=== PATIENT | female | born 1975 | race Caucasian/White ===

== ENCOUNTER 2022-06-02 11:27 | Emergency (ER) | payer OTHER, SELFPAY ==
[2022-06-02 11:38] VITALS: BP 188/93; PULSE 90; RESP 16; TEMP 36.6; O2SAT 99
--- NOTE | 2022-06-02 11:43 | ED.DENTAL ---
HPI - Dental/Oral General Chief complaint: Dental/Oral Stated complaint: Tooth pain /sinus infection Time Seen by Provider: 06/02/22 11:44 Source: patient, RN notes reviewed and old records reviewed Mode of arrival: ambulatory Limitations: no limitations History of Present Illness HPI Narrative: 47 year old female presents to [facility] care with complaints of 1-2 weeks history of dental pain to left lower molar #20 tooth with a hole noted to the front of the tooth. Patient reports that she has had dental problems in past with missing teeth noted. Patient has been taking some Tylenol and Ibuprofen for her discomfort. Patient had recent COVID and was treated for 5 days with Paxlovid which was started 05/26/2022. Patient also reports that she woke this morning with her left eye swollen shut with yellowish discharge noted. MD Complaint: tooth pain Location: Tooth # (20) Onset (ago): week(s) (2) Severity: moderate Severity scale (1-10): 5 Treatment prior to arrival: oral analgesic Related Data Home Medications Medication Instructions Recorded Confirmed albuterol sulfate 90 mcg/actuation 2 puff inhalation Q4-6H PRN 06/02/22 06/02/22 aerosol inhaler Shortness Of Breath Or Wheezing gabapentin 300 mg capsule 300 mg PO TID 06/02/22 06/02/22 hydrocodone 7.5 mg-acetaminophen 1 tablet PO Q6H PRN Pain 06/02/22 06/02/22 325 mg tablet ibuprofen 800 mg tablet 800 mg PO DAILY 06/02/22 06/02/22 insulin glargine-yfgn 100 unit/mL 100 unit subcut 3XD 06/02/22 06/02/22 (3 mL) subcutaneous pen (Semglee (insulin glargine-yfgn) Pen) metoprolol tartrate 50 mg tablet 50 mg PO BID 06/02/22 06/02/22 naloxone 4 mg/actuation nasal spray 1 spray intranasal DAILY PRN 06/02/22 06/02/22 (Drug) Ingestion ondansetron HCl 4 mg tablet 4 mg PO Q8H PRN Nausea 06/02/22 06/02/22 pantoprazole 40 mg tablet,delayed 40 mg PO DAILY 06/02/22 06/02/22 release Allergies Allergy/AdvReac Type Severity Reaction Status Date / Time Penicillins Allergy Unknown RASH, Verified 06/02/22 11:39 SWELLING Review of Systems Review of Systems: CONSTITUTIONAL: Denies fever, chills, or sweats. EYES: Denies visual changes,positive redness, or discharge from left eye. ENT: Denies rhinorrhea, congestion, sore throat, or otalgia.positive for dental pain left lower jaw CARDIOVASCULAR: Denies chest pain, palpitations, or edema. RESPIRATORY: Denies cough or dyspnea. GASTROINTESTINAL: Denies abdominal pain, nausea, vomiting, or diarrhea. GENITOURINARY: Denies dysuria or hematuria. SKIN: Denies rash or itching. MUSCULOSKELETAL: Chronic back pain, joint pain, or myalgia. NEUROLOGIC: Denies headache, numbness, or weakness. PSYCHIATRIC: Positive for anxiety or depression. All systems reviewed & are unremarkable except as noted in HPI and below PMFSH Past Medical History Medical History (Updated 06/06/22 @ 10:04 by Jennifer Parker NP) Anxiety and depression Asthma COVID-18 May 2022 Diabetes Elevated cholesterol Fibromyalgia GERD (gastroesophageal reflux disease) Hx of migraines Hypertension Rheumatoid arthritis Surgical History Surgical History (Updated 06/06/22 @ 10:08 by Jennifer Parker NP) H/O: knee surgery bilateral History of carpal tunnel release History of cholecystectomy History of tubal ligation Social History Social History (Updated 06/06/22 @ 10:01 by Jennifer Parker NP) Smoking status: Unknown if ever smoked Alcohol intake: unknown Substance use type: opiates Last use: pain control Living arrangements: with family Gender identity (if verbalized by the patient): Female Comments At time of signature, agree with nursing past medical, surgical, social and family history. There is no relevant family history pertinent to the presenting complaint Exam Narrative: GENERAL: Well-appearing, well-nourished, and in no acute distress.flat affect HEAD: Normocephalic, atraumatic. EYES: PERRLA and EOMI.left conjunctiva red with y
[2022-06-02 12:00] VITALS: BP 164/92
== END 2022-06-02 12:15 | disposition home or self-care (01) ==
PROVIDERS: Emergency Provider Registered Nurse; PCP Family Medicine
DX: K08.89 Other specified disorders of teeth and supporting structures (principal); K02.9 Dental caries, unspecified; H10.9 Unspecified conjunctivitis
CPT/HCPCS: 99203; G0463

== ENCOUNTER 2024-06-14 14:11 | Emergency (ER) | payer OTHER, SELFPAY ==
[2024-06-14 14:23] VITALS: BP 145/82; PULSE 80; RESP 16; TEMP 36.7; O2SAT 97
[2024-06-14 14:27] VITALS: BP 145/82; PULSE 80; RESP 16; TEMP 36.7; O2SAT 97
--- NOTE | 2024-06-14 14:39 | ED.URI ---
HPI - URI/Sore Throat General Chief Complaint: Upper Respiratory Infection Stated Complaint: sore throat,cough,fever History of Present Illness HPI Narrative: Patient presents with sore throat, nasal congestion bilateral ear pain and cough. No shortness of breath no chest pain no trouble swallowing no drooling. Patient states her symptoms started 3 days ago good p.o. intake and good output. Related Data Home Medications Medication Instructions Recorded Confirmed albuterol sulfate 90 mcg/actuation 2 puff inhalation Q4-6H PRN 06/02/22 06/02/22 aerosol inhaler Shortness Of Breath Or Wheezing gabapentin 300 mg capsule 300 mg PO TID 06/02/22 06/02/22 hydrocodone 7.5 mg-acetaminophen 1 tablet PO Q6H PRN Pain 06/02/22 06/02/22 325 mg tablet ibuprofen 800 mg tablet 800 mg PO DAILY 06/02/22 06/02/22 insulin glargine-yfgn 100 unit/mL 100 unit subcut 3XD 06/02/22 06/02/22 (3 mL) subcutaneous pen (Semglee (insulin glargine-yfgn) Pen) metoprolol tartrate 50 mg tablet 50 mg PO BID 06/02/22 06/02/22 naloxone 4 mg/actuation nasal spray 1 spray intranasal DAILY PRN 06/02/22 06/02/22 (Drug) Ingestion ondansetron HCl 4 mg tablet 4 mg PO Q8H PRN Nausea 06/02/22 06/02/22 pantoprazole 40 mg tablet,delayed 40 mg PO DAILY 06/02/22 06/02/22 release clonazepam 0.5 mg tablet mg 06/14/24 empagliflozin 10 mg tablet mg 06/14/24 (Jardiance) insulin degludec 100 unit/mL (3 unit subcut 06/14/24 mL) subcutaneous pen (Tresiba FlexTouch U-100 insulin) metformin 500 mg tablet mg 06/14/24 olmesartan 40 mg tablet mg 06/14/24 Allergies Allergy/AdvReac Type Severity Reaction Status Date / Time Penicillins Allergy Unknown RASH, Verified 06/14/24 14:18 SWELLING Review of Systems Review of Systems: CONSTITUTIONAL: Denies chills, or sweats. Reports fever and generalized body aches EYES: Denies visual changes, redness, or discharge. ENT: Denies otalgia. Reports nasal congestion runny nose and sore throat CARDIOVASCULAR: Denies chest pain, palpitations, or edema. RESPIRATORY: Denies dyspnea. Reports occasional cough GASTROINTESTINAL: Denies abdominal pain, nausea, vomiting, or diarrhea. GENITOURINARY: Denies dysuria or hematuria. SKIN: Denies rash or itching. MUSCULOSKELETAL: Denies back pain, joint pain, or myalgia. Reports generalized body aches NEUROLOGIC: Denies headache, numbness, or weakness. PSYCHIATRIC: Denies anxiety or depression. [facility] Past Medical History Medical History (Updated 06/14/24 @ 14:43 by JASPAL Mendez) Anxiety and depression Asthma COVID-18 May 2022 Diabetes Elevated cholesterol Fibromyalgia GERD (gastroesophageal reflux disease) Hx of migraines Hypertension Rheumatoid arthritis Surgical History Surgical History (Updated 06/06/22 @ 10:08 by Jennifer Parker NP) H/O: knee surgery bilateral History of carpal tunnel release History of cholecystectomy History of tubal ligation Social History Social History (Updated 06/06/22 @ 10:01 by Jennifer Parker NP) Smoking status: Unknown if ever smoked Alcohol intake: unknown Substance use type: opiates Last use: pain control Living arrangements: with family Gender identity (if verbalized by the patient): Female Comments At time of signature, agree with nursing past medical, surgical, social and family history. There is no relevant family history pertinent to the presenting complaint Exam Narrative: The patient is a well-developed, well-nourished in no acute distress. SKIN: Skin is warm and dry without erythema, swelling or exudate. There is good turgor. No tenting. HEAD: Atraumatic. Normocephalic. No temporal or scalp tenderness. EYES: Moist and bright. Sclera and conjunctivae normal. No discharge. PERRLA. Extraocular motions intact. Gross visual acuity intact. EARS: Pinna is normal shape and contour. Clear external auditory canals. TM pearly de leon with good cone of light, no erythema or suppuration. B
[2024-06-14 14:43] LABS: EDCOVIDSCREEN Positive (Negative); EDINFLUASCREEN Negative (Negative); EDINFLUBSCREEN Negative (Negative); EDSTREPNEGPOS1 Negative (Negative)
== END 2024-06-14 14:48 | disposition home or self-care (01) ==
PROVIDERS: Emergency Provider Nurse Practitioner Family; PCP Internal Medicine
DX: U07.1 COVID-19 (principal); J45.909 Unspecified asthma, uncomplicated; E11.9 Type 2 diabetes mellitus without complications; Z79.4 Long term (current) use of insulin; E78.00 Pure hypercholesterolemia, unspecified; M79.7 Fibromyalgia; K21.9 Gastro-esophageal reflux disease without esophagitis; I10 Essential (primary) hypertension; M06.9 Rheumatoid arthritis, unspecified
CPT/HCPCS: 87081; 87635; 87804; 87880; 99213; G0463